=== PATIENT | male | born 1965 | race Native Hawaiian/Other Pacific Islander ===

== ENCOUNTER 2016-05-05 09:39 | Outpatient (CLI) | payer OTHER | END 2016-05-05 19:09 | disposition home or self-care (01) | LOC: RAD 09:39 | DX: M54.2 Cervicalgia (principal) ==

== ENCOUNTER 2016-10-11 14:48 | Outpatient (CLI) | payer OTHER ==
[2016-10-11 15:10] LABS: POTASSIUM 4.4 mmol/L (3.6-5.2)
== END 2016-10-11 19:07 | disposition home or self-care (01) ==
LOC: LABW 14:48
PROVIDERS: Internal Medicine Cardiovascular Disease
DX: I10 Essential (primary) hypertension (principal); I50.9 Heart failure, unspecified; E78.4 Other hyperlipidemia; Z79.899 Other long term (current) drug therapy; Z51.81 Encounter for therapeutic drug level monitoring
CPT/HCPCS: 36415; 80048

== ENCOUNTER 2016-11-14 09:30 | Outpatient (CLI) | payer OTHER | END 2016-11-14 19:31 | disposition home or self-care (01) | LOC: LABW 09:30 | PROVIDERS: Internal Medicine Cardiovascular Disease | DX: I10 Essential (primary) hypertension (principal); E78.4 Other hyperlipidemia; E11.9 Type 2 diabetes mellitus without complications; Z79.899 Other long term (current) drug therapy; Z51.81 Encounter for therapeutic drug level monitoring | CPT/HCPCS: 36415; 80048; 83036 ==

== ENCOUNTER 2017-02-12 08:16 | Outpatient (CLI) | payer OTHER ==
[2017-02-12 08:59] LABS: PLATELET COUNT 276 K/uL (142-355)
[2017-02-12 09:14] LABS: POTASSIUM 3.1 mmol/L (3.6-5.2)
== END 2017-02-12 09:20 | disposition home or self-care (01) ==
LOC: LABW 08:16
PROVIDERS: Internal Medicine Cardiovascular Disease
DX: I10 Essential (primary) hypertension (principal); E78.4 Other hyperlipidemia; I25.10 Atherosclerotic heart disease of native coronary artery without angina pectoris
CPT/HCPCS: 36415; 80053; 80061; 85027

== ENCOUNTER 2017-05-16 09:22 | Inpatient (IN) | payer OTHER ==
[2017-05-16] VITALS (12 sets, daily range): BP systolic 108–136; BP diastolic 74–90; TEMP 97.7–98.3; Ht 177.8 cm; Wt 103.2 kg
[~2017-05-16] VITALS: Ht 177.8 cm; Wt 103.2 kg
[2017-05-16] MEDS ORDERED: XANAX XR1 MG OR (09:54)
[2017-05-16] MEDS ORDERED: ASPIRIN 81 LOW81 MG PO (09:55)
[2017-05-16] MEDS ORDERED: CELEXA40 MG PO (09:55)
[2017-05-16] MEDS ORDERED: ALPR0.5T24 PO (09:55)
[2017-05-16] MEDS ORDERED: FURO40TA93 PO ×2 (09:56→09:57)
[2017-05-16] MEDS ORDERED: CLOP75TA2 PO (09:56)
[2017-05-16] MEDS ORDERED: [UNRECOGNIZED DRUG - CODE] PO (09:57)
[2017-05-16] MEDS ORDERED: METO50TA63 PO (09:58)
[2017-05-16] MEDS ORDERED: OMEPRAZOLE40 MG OR (09:58)
[2017-05-16] MEDS ORDERED: KLOR-CON M2020 MEQ OR (09:59)
[2017-05-16] MEDS ORDERED: RANO1000T PO (09:59)
[2017-05-16] MEDS ORDERED: JANUVIA100 MG PO (09:59)
[2017-05-16] MEDS ORDERED: SPIRONOLACT25 MG PO (10:00)
[2017-05-16 10:43] LABS: PLATELET COUNT 331 K/uL (142-355)
[2017-05-16 10:56] LABS: SODIUM 120 mmol/L (136-145)
[2017-05-16 11:06] LABS: POTASSIUM 2.2 mmol/L (3.6-5.2)
[2017-05-16 23:54] LABS: POTASSIUM 2.4 mmol/L (3.6-5.2)
[2017-05-17] VITALS (21 sets, daily range): BP systolic 104–136; BP diastolic 61–96; TEMP 97–98.5
[2017-05-17 06:30] LABS: PLATELET COUNT 264 K/uL (142-355)
[2017-05-17] MEDS ORDERED: ASPIRIN325 M1 PO (06:56)
[2017-05-17] MEDS ORDERED: ALPR0.5T24 PO (06:57)
[2017-05-17] MEDS ORDERED: LIPITOR80 MG PO (07:05)
[2017-05-17 07:16] LABS: POTASSIUM 2.4 mmol/L (3.6-5.2)
[2017-05-18] VITALS (8 sets, daily range): BP systolic 98–131; BP diastolic 63–83; TEMP 97–98.3
[2017-05-18 06:42] LABS: POTASSIUM 2.4 mmol/L (3.6-5.2)
[2017-05-19] VITALS: BP 115/72; TEMP 97.8
[2017-05-19 04:00] VITALS: TEMP 98.2
[2017-05-19 06:15] VITALS: BP 122/68; TEMP 98
[2017-05-19 06:48] LABS: POTASSIUM 3.3 mmol/L (3.6-5.2)
[2017-05-19 08:00] VITALS: BP 92/58; TEMP 98.6
== END 2017-05-19 10:06 | disposition home or self-care (01) | DRG 641 ==
LOC: ED 09:22 → MED/SURG 22:07 → ICU 22:07 → MED/SURG 05-18 11:00
PROVIDERS: Family Medicine; ADMIT Internal Medicine
DX: E87.6 Hypokalemia (principal); I42.8 Other cardiomyopathies; I25.10 Atherosclerotic heart disease of native coronary artery without angina pectoris; E87.1 Hypo-osmolality and hyponatremia; E87.8 Other disorders of electrolyte and fluid balance, not elsewhere classified; I12.9 Hypertensive chronic kidney disease with stage 1 through stage 4 chronic kidney disease, or unspecified chronic kidney disease; E11.22 Type 2 diabetes mellitus with diabetic chronic kidney disease; N18.3 Chronic kidney disease, stage 3 (moderate); R53.1 Weakness
CPT/HCPCS: 36415; 80048; 80053; 82948; 82962; 83735; 83880; 84484; 85027; 93005; 96372; J1815; J1940; J2550; J3480

== ENCOUNTER 2017-06-25 08:33 | Outpatient (CLI) | payer OTHER ==
[~2017-06-25 08:33] MED LIST: ALPR0.5T24 PO; ASPIRIN 81 LOW81 MG PO; ASPIRIN325 M1 PO; CELEXA40 MG PO; CLOP75TA2 PO; FURO40TA93 PO; JANUVIA100 MG PO; KLOR-CON M2020 MEQ OR; LIPITOR80 MG PO; METO50TA63 PO; OMEPRAZOLE40 MG OR; RANO1000T PO; SPIRONOLACT25 MG PO; XANAX XR1 MG OR; [UNRECOGNIZED DRUG - CODE] PO
== END 2017-06-25 19:19 | disposition home or self-care (01) ==
LOC: US 08:33
DX: R10.84 Generalized abdominal pain (principal)

== ENCOUNTER 2017-06-28 08:46 | Outpatient (CLI) | payer OTHER | END 2017-06-28 22:54 | disposition home or self-care (01) | LOC: CT 08:46 | DX: R10.84 Generalized abdominal pain (principal) ==

== ENCOUNTER 2017-07-24 11:55 | Outpatient (CLI) | payer OTHER | END 2017-07-24 20:25 | disposition home or self-care (01) | LOC: NM 11:55 | DX: R10.84 Generalized abdominal pain (principal) | CPT/HCPCS: A9537 ==

== ENCOUNTER 2017-08-14 09:41 | Outpatient (CLI) | payer OTHER | END 2017-08-14 19:55 | disposition home or self-care (01) | LOC: NM 09:41 | DX: R11.0 Nausea (principal); R10.84 Generalized abdominal pain ==

== ENCOUNTER 2017-10-01 13:56 | Outpatient (CLI) | payer OTHER ==
[2017-10-01 14:17] LABS: POTASSIUM 4.1 mmol/L (3.6-5.2)
[2017-10-01 14:27] LABS: PLATELET COUNT 293 K/uL (142-355)
== END 2017-10-01 22:13 | disposition home or self-care (01) ==
LOC: LAB 13:56
PROVIDERS: Internal Medicine Cardiovascular Disease
DX: I25.10 Atherosclerotic heart disease of native coronary artery without angina pectoris (principal); I42.8 Other cardiomyopathies; I12.9 Hypertensive chronic kidney disease with stage 1 through stage 4 chronic kidney disease, or unspecified chronic kidney disease; E11.22 Type 2 diabetes mellitus with diabetic chronic kidney disease
CPT/HCPCS: 80053; 83735; 85027

== ENCOUNTER 2017-10-08 15:50 | Outpatient (CLI) | payer OTHER ==
[2017-10-08 16:18] LABS: PLATELET COUNT 404 K/uL (142-355)
[2017-10-08 17:09] LABS: POTASSIUM 3.2 mmol/L (3.6-5.2)
== END 2017-10-08 19:53 | disposition home or self-care (01) ==
LOC: LAB 15:50
PROVIDERS: Internal Medicine Cardiovascular Disease
DX: I13.0 Hypertensive heart and chronic kidney disease with heart failure and stage 1 through stage 4 chronic kidney disease, or unspecified chronic kidney disease (principal); I50.84 End stage heart failure
CPT/HCPCS: 80053; 83735; 85027

== ENCOUNTER 2017-10-15 14:03 | Outpatient (CLI) | payer OTHER ==
[2017-10-15 14:16] LABS: PLATELET COUNT 374 K/uL (142-355)
[2017-10-15 14:27] LABS: POTASSIUM 2.9 mmol/L (3.6-5.2)
== END 2017-10-15 20:29 | disposition home or self-care (01) ==
LOC: LAB 14:03
PROVIDERS: Internal Medicine Cardiovascular Disease
DX: I10 Essential (primary) hypertension (principal); I50.9 Heart failure, unspecified; E11.9 Type 2 diabetes mellitus without complications; N18.3 Chronic kidney disease, stage 3 (moderate); I25.5 Ischemic cardiomyopathy; Z95.810 Presence of automatic (implantable) cardiac defibrillator
CPT/HCPCS: 80053; 83735; 85027

== ENCOUNTER 2017-10-19 08:15 | Outpatient (CLI) | payer OTHER ==
[2017-10-19 10:16] LABS: POTASSIUM 3.8 mmol/L (3.6-5.2)
== END 2017-10-19 22:02 | disposition home or self-care (01) ==
LOC: LABW 08:15
PROVIDERS: Internal Medicine Cardiovascular Disease
DX: I10 Essential (primary) hypertension (principal); I25.10 Atherosclerotic heart disease of native coronary artery without angina pectoris; Z79.899 Other long term (current) drug therapy; Z51.81 Encounter for therapeutic drug level monitoring
CPT/HCPCS: 36415; 80048

== ENCOUNTER 2017-10-22 11:34 | Outpatient (CLI) | payer OTHER ==
[2017-10-22 12:25] LABS: PLATELET COUNT 383 K/uL (142-355)
[2017-10-22 12:43] LABS: POTASSIUM 3.3 mmol/L (3.6-5.2)
== END 2017-10-22 23:04 | disposition home or self-care (01) ==
LOC: LAB 11:34
PROVIDERS: Internal Medicine Cardiovascular Disease
DX: I25.5 Ischemic cardiomyopathy (principal); I50.84 End stage heart failure; Z95.810 Presence of automatic (implantable) cardiac defibrillator
CPT/HCPCS: 80053; 83735; 85027

== ENCOUNTER 2017-10-29 13:22 | Outpatient (CLI) | payer OTHER ==
[2017-10-29 14:36] LABS: PLATELET COUNT 367 K/uL (142-355)
[2017-10-29 14:46] LABS: POTASSIUM 3.2 mmol/L (3.6-5.2)
== END 2017-10-29 20:34 | disposition home or self-care (01) ==
LOC: LAB 13:22
PROVIDERS: Internal Medicine Cardiovascular Disease
DX: I25.5 Ischemic cardiomyopathy (principal); I50.84 End stage heart failure; Z95.810 Presence of automatic (implantable) cardiac defibrillator; I50.9 Heart failure, unspecified
CPT/HCPCS: 80053; 83735; 85027

== ENCOUNTER 2017-11-05 10:48 | Outpatient (CLI) | payer OTHER ==
[2017-11-05 10:58] LABS: PLATELET COUNT 362 K/uL (142-355)
[2017-11-05 11:28] LABS: POTASSIUM 2.5 mmol/L (3.6-5.2)
== END 2017-11-05 22:01 | disposition home or self-care (01) ==
LOC: LAB 10:48
PROVIDERS: Internal Medicine Cardiovascular Disease
DX: I50.84 End stage heart failure (principal)
CPT/HCPCS: 80053; 83735; 85027

== ENCOUNTER 2017-11-12 12:48 | Outpatient (CLI) | payer OTHER ==
[2017-11-12 13:06] LABS: PLATELET COUNT 332 K/uL (142-355)
[2017-11-12 13:19] LABS: POTASSIUM 3.1 mmol/L (3.6-5.2)
== END 2017-11-12 20:13 | disposition home or self-care (01) ==
LOC: LAB 12:48
PROVIDERS: Internal Medicine Cardiovascular Disease
DX: I25.5 Ischemic cardiomyopathy (principal); I50.84 End stage heart failure; Z95.810 Presence of automatic (implantable) cardiac defibrillator
CPT/HCPCS: 80053; 83735; 85027

== ENCOUNTER 2017-11-19 14:41 | Outpatient (CLI) | payer OTHER ==
[2017-11-19 15:45] LABS: PLATELET COUNT 350 K/uL (142-355)
== END 2017-11-19 21:18 | disposition home or self-care (01) ==
LOC: LAB 14:41
PROVIDERS: Internal Medicine
DX: I50.84 End stage heart failure (principal); I25.5 Ischemic cardiomyopathy; I95.89 Other hypotension
CPT/HCPCS: 80053; 81000; 82043; 82306; 82565; 82570; 83735; 83970; 84100; 84155; 85027

== ENCOUNTER 2017-11-26 13:36 | Outpatient (CLI) | payer OTHER ==
[2017-11-26 14:14] LABS: PLATELET COUNT 346 K/uL (142-355); POTASSIUM 2.8 mmol/L (3.6-5.2)
== END 2017-11-26 21:43 | disposition home or self-care (01) ==
LOC: LAB 13:36
PROVIDERS: Internal Medicine Cardiovascular Disease
DX: I25.5 Ischemic cardiomyopathy (principal); I50.84 End stage heart failure; Z95.810 Presence of automatic (implantable) cardiac defibrillator
CPT/HCPCS: 80053; 83735; 85027

== ENCOUNTER 2017-12-03 13:54 | Outpatient (CLI) | payer OTHER ==
[2017-12-03 14:12] LABS: PLATELET COUNT 377 K/uL (142-355)
== END 2017-12-03 20:52 | disposition home or self-care (01) ==
LOC: LAB 13:54
PROVIDERS: Internal Medicine Cardiovascular Disease
DX: I25.5 Ischemic cardiomyopathy (principal); I50.84 End stage heart failure; Z95.810 Presence of automatic (implantable) cardiac defibrillator; I50.9 Heart failure, unspecified
CPT/HCPCS: 80053; 83735; 85027

== ENCOUNTER 2017-12-11 14:48 | Outpatient (CLI) | payer OTHER ==
[2017-12-11 15:11] LABS: PLATELET COUNT 378 K/uL (142-355)
[2017-12-11 15:32] LABS: POTASSIUM 3.6 mmol/L (3.6-5.2)
== END 2017-12-11 23:34 | disposition home or self-care (01) ==
LOC: LAB 14:48
PROVIDERS: Internal Medicine Cardiovascular Disease
DX: I25.5 Ischemic cardiomyopathy (principal); I50.84 End stage heart failure; Z95.810 Presence of automatic (implantable) cardiac defibrillator
CPT/HCPCS: 80053; 83735; 85027

== ENCOUNTER 2017-12-13 13:43 | Emergency (ER) | payer OTHER ==
[~2017-12-13] VITALS: Ht 180.3 cm; Wt 107.5 kg
[2017-12-13] MEDS ORDERED: METO25TA2 PO (14:08)
[2017-12-13] MEDS ORDERED: TORSEMIDE100 MG PO (14:09)
[2017-12-13] MEDS ORDERED: TORSEMIDE20 MG PO (14:09)
[2017-12-13] MEDS ORDERED: ACET-655 PO (14:10)
[2017-12-13] MEDS ORDERED: AMOX875T8 PO (14:12)
[2017-12-13] MEDS ORDERED: D-3-55000 UNIT PO (14:12)
[2017-12-13] MEDS ORDERED: EDLUAR10 MG SL (14:13)
[2017-12-13] MEDS ORDERED: TRULANCE3 MG PO (14:14)
[2017-12-13 14:33] LABS: PLATELET COUNT 360 K/uL (142-355)
[2017-12-13 14:39] LABS: POTASSIUM 2.9 mmol/L (3.6-5.2)
[2017-12-13 16:20] VITALS: BP 135/87; TEMP 97.7
== END 2017-12-13 16:20 | disposition home or self-care (01) ==
LOC: ED 13:43
PROVIDERS: Family Medicine
DX: E11.65 Type 2 diabetes mellitus with hyperglycemia (principal); R53.83 Other fatigue; I50.9 Heart failure, unspecified
CPT/HCPCS: 36415; 80053; 83880; 85027; 87804; 96372; 99283; J1815

== ENCOUNTER 2017-12-17 13:55 | Outpatient (CLI) | payer OTHER ==
[~2017-12-17 13:55] MED LIST changes: +ACET-655 PO; +AMOX875T8 PO; +D-3-55000 UNIT PO; +EDLUAR10 MG SL; +METO25TA2 PO; +TORSEMIDE100 MG PO; +TORSEMIDE20 MG PO; +TRULANCE3 MG PO
[2017-12-17 14:09] LABS: POTASSIUM 3.1 mmol/L (3.6-5.2)
[2017-12-17 14:10] LABS: PLATELET COUNT 413 K/uL (142-355)
== END 2017-12-17 23:24 | disposition home or self-care (01) ==
LOC: LAB 13:55
PROVIDERS: Internal Medicine Cardiovascular Disease
DX: I13.0 Hypertensive heart and chronic kidney disease with heart failure and stage 1 through stage 4 chronic kidney disease, or unspecified chronic kidney disease (principal); I50.84 End stage heart failure; I50.23 Acute on chronic systolic (congestive) heart failure
CPT/HCPCS: 80053; 83735; 85027

== ENCOUNTER 2017-12-24 15:10 | Outpatient (CLI) | payer OTHER ==
[2017-12-24 15:23] LABS: PLATELET COUNT 385 K/uL (142-355)
[2017-12-24 15:38] LABS: POTASSIUM 2.7 mmol/L (3.6-5.2)
== END 2017-12-24 19:54 | disposition home or self-care (01) ==
LOC: LAB 15:10
PROVIDERS: Internal Medicine Cardiovascular Disease
DX: I25.5 Ischemic cardiomyopathy (principal); I50.84 End stage heart failure; Z95.810 Presence of automatic (implantable) cardiac defibrillator
CPT/HCPCS: 80053; 83735; 85027

== ENCOUNTER 2017-12-31 13:15 | Outpatient (CLI) | payer OTHER ==
[2017-12-31 13:28] LABS: PLATELET COUNT 340 K/uL (142-355)
== END 2017-12-31 23:32 | disposition home or self-care (01) ==
LOC: LAB 13:15
PROVIDERS: Internal Medicine Cardiovascular Disease
DX: I25.5 Ischemic cardiomyopathy (principal); I50.84 End stage heart failure; Z95.810 Presence of automatic (implantable) cardiac defibrillator
CPT/HCPCS: 80053; 83735; 85027

== ENCOUNTER 2018-01-08 14:09 | Outpatient (CLI) | payer OTHER ==
[2018-01-08 14:50] LABS: PLATELET COUNT 283 K/uL (142-355)
[2018-01-08 15:13] LABS: POTASSIUM 2.9 mmol/L (3.6-5.2)
== END 2018-01-08 23:06 | disposition home or self-care (01) ==
LOC: LAB 14:09
PROVIDERS: Internal Medicine Cardiovascular Disease
DX: I25.5 Ischemic cardiomyopathy (principal); I50.84 End stage heart failure; Z95.810 Presence of automatic (implantable) cardiac defibrillator; I50.9 Heart failure, unspecified
CPT/HCPCS: 80053; 83735; 85027

== ENCOUNTER 2018-01-14 13:04 | Emergency (ER) | payer OTHER ==
[~2018-01-14] VITALS: Ht 177.8 cm; Wt 113.4 kg
[2018-01-14 13:10] VITALS: TEMP 97
[2018-01-14 14:20] LABS: PLATELET COUNT 368 K/uL (142-355)
[2018-01-14 14:28] LABS: POTASSIUM 3.4 mmol/L (3.6-5.2); SODIUM 130 mmol/L (136-145)
[2018-01-14 16:46] VITALS: BP 140/99
== END 2018-01-14 16:45 | disposition home or self-care (01) ==
LOC: ED 13:04
DX: R60.9 Edema, unspecified (principal); I42.9 Cardiomyopathy, unspecified; N18.9 Chronic kidney disease, unspecified; E11.9 Type 2 diabetes mellitus without complications
CPT/HCPCS: 36415; 80053; 81000; 82550; 82553; 83036; 83880; 84484; 85027; 93005; 99283

== ENCOUNTER 2018-01-15 13:37 | Outpatient (CLI) | payer OTHER ==
[2018-01-15 14:01] LABS: PLATELET COUNT 330 K/uL (142-355)
[2018-01-15 14:23] LABS: POTASSIUM 3.4 mmol/L (3.6-5.2)
== END 2018-01-15 22:44 | disposition home or self-care (01) ==
LOC: LAB 13:37
PROVIDERS: Internal Medicine Cardiovascular Disease
DX: I25.5 Ischemic cardiomyopathy (principal); I50.84 End stage heart failure; Z95.810 Presence of automatic (implantable) cardiac defibrillator
CPT/HCPCS: 80053; 83735; 85027

== ENCOUNTER 2018-01-23 13:38 | Outpatient (CLI) | payer OTHER ==
[2018-01-23 14:13] LABS: PLATELET COUNT 303 K/uL (142-355)
[2018-01-23 15:12] LABS: POTASSIUM 3.7 mmol/L (3.6-5.2)
== END 2018-01-23 19:25 | disposition home or self-care (01) ==
LOC: LAB 13:38
PROVIDERS: Internal Medicine Cardiovascular Disease
DX: I25.5 Ischemic cardiomyopathy (principal); I50.84 End stage heart failure; Z95.810 Presence of automatic (implantable) cardiac defibrillator; E11.22 Type 2 diabetes mellitus with diabetic chronic kidney disease
CPT/HCPCS: 80053; 83735; 84681; 85027

== ENCOUNTER 2018-01-28 14:42 | Outpatient (CLI) | payer OTHER ==
[2018-01-28 15:11] LABS: PLATELET COUNT 363 K/uL (142-355)
[2018-01-28 15:27] LABS: POTASSIUM 3.1 mmol/L (3.6-5.2)
== END 2018-01-28 19:55 | disposition home or self-care (01) ==
LOC: LAB 14:42
PROVIDERS: Internal Medicine Cardiovascular Disease
DX: I25.5 Ischemic cardiomyopathy (principal); I50.84 End stage heart failure; Z95.810 Presence of automatic (implantable) cardiac defibrillator; I50.9 Heart failure, unspecified
CPT/HCPCS: 80053; 83735; 85027

== ENCOUNTER 2018-02-04 14:51 | Outpatient (CLI) | payer OTHER ==
[2018-02-04 15:05] LABS: PLATELET COUNT 343 K/uL (142-355)
[2018-02-04 15:25] LABS: POTASSIUM 3.7 mmol/L (3.6-5.2)
== END 2018-02-04 20:05 | disposition home or self-care (01) ==
LOC: LAB 14:51
PROVIDERS: Internal Medicine Cardiovascular Disease
DX: I25.5 Ischemic cardiomyopathy (principal); I50.84 End stage heart failure; Z95.810 Presence of automatic (implantable) cardiac defibrillator
CPT/HCPCS: 80053; 83735; 85027

== ENCOUNTER 2018-02-08 14:43 | Outpatient (CLI) | payer OTHER | END 2018-02-08 21:53 | disposition home or self-care (01) | LOC: LAB 14:43 | DX: I25.5 Ischemic cardiomyopathy (principal); I50.84 End stage heart failure; Z95.810 Presence of automatic (implantable) cardiac defibrillator; I50.9 Heart failure, unspecified | CPT/HCPCS: 84132 ==

== ENCOUNTER 2018-02-11 13:42 | Outpatient (CLI) | payer OTHER ==
[2018-02-11 14:02] LABS: PLATELET COUNT 335 K/uL (142-355)
== END 2018-02-11 19:27 | disposition home or self-care (01) ==
LOC: LAB 13:42
PROVIDERS: Internal Medicine Cardiovascular Disease
DX: I25.5 Ischemic cardiomyopathy (principal); I50.84 End stage heart failure; Z95.810 Presence of automatic (implantable) cardiac defibrillator
CPT/HCPCS: 80053; 83735; 85027

== ENCOUNTER 2018-02-15 13:37 | Outpatient (CLI) | payer OTHER | END 2018-02-15 19:51 | disposition home or self-care (01) | LOC: LAB 13:37 | DX: I13.0 Hypertensive heart and chronic kidney disease with heart failure and stage 1 through stage 4 chronic kidney disease, or unspecified chronic kidney disease (principal); I50.84 End stage heart failure; N18.3 Chronic kidney disease, stage 3 (moderate) | CPT/HCPCS: 84132 ==

== ENCOUNTER 2018-02-18 14:05 | Outpatient (CLI) | payer OTHER ==
[2018-02-18 14:29] LABS: PLATELET COUNT 413 K/uL (142-355)
[2018-02-18 14:42] LABS: POTASSIUM 2.7 mmol/L (3.6-5.2)
== END 2018-02-18 22:54 | disposition home or self-care (01) ==
LOC: LAB 14:05
PROVIDERS: Internal Medicine Cardiovascular Disease
DX: I25.5 Ischemic cardiomyopathy (principal); I50.84 End stage heart failure; Z95.810 Presence of automatic (implantable) cardiac defibrillator
CPT/HCPCS: 80053; 83735; 85027

== ENCOUNTER 2018-02-27 14:13 | Outpatient (CLI) | payer OTHER | END 2018-02-27 19:37 | disposition home or self-care (01) | LOC: LAB 14:13 | DX: I25.5 Ischemic cardiomyopathy (principal); I50.84 End stage heart failure; Z95.810 Presence of automatic (implantable) cardiac defibrillator; I50.9 Heart failure, unspecified | CPT/HCPCS: 84132 ==

== ENCOUNTER 2018-03-12 15:03 | Outpatient (CLI) | payer OTHER ==
[2018-03-12 15:27] LABS: POTASSIUM 2.8 mmol/L (3.6-5.2)
== END 2018-03-12 21:31 | disposition home or self-care (01) ==
LOC: LABW 15:03
PROVIDERS: Internal Medicine Cardiovascular Disease
DX: I50.23 Acute on chronic systolic (congestive) heart failure (principal); I50.84 End stage heart failure; I25.5 Ischemic cardiomyopathy; Z79.899 Other long term (current) drug therapy
CPT/HCPCS: 36415; 80048

== ENCOUNTER 2018-03-15 09:39 | Outpatient (CLI) | payer OTHER | END 2018-03-15 23:11 | disposition home or self-care (01) | LOC: LABW 09:39 | DX: I50.23 Acute on chronic systolic (congestive) heart failure (principal); I50.84 End stage heart failure; I25.5 Ischemic cardiomyopathy; Z79.899 Other long term (current) drug therapy | CPT/HCPCS: 36415; 84132 ==

== ENCOUNTER 2018-03-19 09:15 | Outpatient (CLI) | payer OTHER ==
[2018-03-19 09:42] LABS: POTASSIUM 2.7 mmol/L (3.6-5.2)
== END 2018-03-19 22:09 | disposition home or self-care (01) ==
LOC: LABW 09:15
PROVIDERS: Internal Medicine Cardiovascular Disease
DX: I50.23 Acute on chronic systolic (congestive) heart failure (principal); I50.84 End stage heart failure; I25.5 Ischemic cardiomyopathy; Z79.899 Other long term (current) drug therapy
CPT/HCPCS: 36415; 80048

== ENCOUNTER 2018-04-13 05:28 | Inpatient (IN) | payer OTHER ==
[~2018-04-13] VITALS: Ht 177.8 cm; Wt 119.3 kg
[2018-04-13] VITALS (21 sets, daily range): BP systolic 89–128; BP diastolic 47–92; TEMP 97.5–99.9; Ht 177.8 cm; Wt 119.3 kg
[2018-04-13 05:53] LABS: PLATELET COUNT 321 K/uL (142-355)
[2018-04-13 06:42] LABS: POTASSIUM 5.3 mmol/L (3.6-5.2)
[2018-04-13] MEDS ORDERED: PERCOCET1 TA3 PO (13:18)
[2018-04-13] MEDS ORDERED: XANAX2 MG (15:57)
[2018-04-13] MEDS ORDERED: BUME1TAB19 PO (15:58)
[2018-04-13] MEDS ORDERED: ISOSORB MONO20 MG PO (15:59)
[2018-04-13] MEDS ORDERED: CARAFATE1 GM PO (16:00)
[2018-04-13] MEDS ORDERED: LYRICA75 MG PO (16:00)
[2018-04-13] MEDS ORDERED: IRON325 MG PO (16:01)
[2018-04-13] MEDS ORDERED: COZAAR25 MG PO (16:02)
[2018-04-13] MEDS ORDERED: ELIQUIS5 MG PO (16:03)
[2018-04-13] MEDS ORDERED: PROMETHAZINE HY25 MG PO (16:05)
[2018-04-14] VITALS (21 sets, daily range): BP systolic 74–124; BP diastolic 46–80; TEMP 97.5–998.1
[2018-04-14 06:16] LABS: PLATELET COUNT 314 K/uL (142-355)
[2018-04-14 06:28] LABS: POTASSIUM 5.8 mmol/L (3.6-5.2)
[2018-04-15 04:37] VITALS: BP 94/50; TEMP 98.4
[2018-04-15 08:00] VITALS: BP 111/75; TEMP 98.4
[2018-04-15 12:00] VITALS: BP 75/38; TEMP 98.2
== END 2018-04-15 15:15 | disposition home or self-care (01) | DRG 291 ==
LOC: ED 05:28 → ICU 10:15 → MED/SURG 04-14 17:05
PROVIDERS: Allergy & Immunology; ADMIT Internal Medicine
DX: I13.2 Hypertensive heart and chronic kidney disease with heart failure and with stage 5 chronic kidney disease, or end stage renal disease (principal); I50.23 Acute on chronic systolic (congestive) heart failure; L03.114 Cellulitis of left upper limb; N18.5 Chronic kidney disease, stage 5; N17.9 Acute kidney failure, unspecified; I42.8 Other cardiomyopathies; I25.10 Atherosclerotic heart disease of native coronary artery without angina pectoris; E11.22 Type 2 diabetes mellitus with diabetic chronic kidney disease; D63.1 Anemia in chronic kidney disease; F43.10 Post-traumatic stress disorder, unspecified; F41.8 Other specified anxiety disorders
CPT/HCPCS: 36600; 80053; 80307; 81000; 82805; 83880; 84484; 85027; 93005; 94640; 94664; 94760; 99283; J0712; J1940; J2405; J3370